=== PATIENT | female | born 1980 | race Caucasian/White ===

== ENCOUNTER 2018-05-21 18:36 | Emergency (ER) | payer OTHER ==
--- NOTE | 2018-05-21 18:48 | EDPHY ---
H & P Time Seen by Provider: 05/21/18 18:38 HPI/ROS: CHIEF COMPLAINT: Epigastric and chest pain HISTORY OF PRESENT ILLNESS: She has been having intermittent symptoms over the past month but usually only last a minute or 2. Presents tonight with symptoms starting at 6:00 p.m. While she was sweeping. Epigastric and radiates up into her throat associated with nausea and diaphoresis and left arm pain and numbness and tingling. She says her central symptoms feel like bad heartburn. Arrives by EMS feeling a little bit better. Denies cough or vomiting or palpitations or syncope. No diarrhea. No injury or trauma. REVIEW OF SYSTEMS: Eye: no change in vision ENT: no sore throat Cardiac: HPI Pulmonary: no cough or SOB Abdomen: HPI Musculoskeletal: no back pain Skin: no rash Neuro: no headache Constitutional: no fever : no urinary symptoms A comprehensive 10 point review of systems is otherwise negative aside from elements mentioned in the history of present illness. PAST MEDICAL HISTORY: Hypertension and thyroid Family history: Positive for premature coronary disease in her father in his 40s, and gallbladder disease in her mother. Negative for DVT or PE. Social history: Tobacco smoker General Appearance: Alert and conversant, cooperative. Eyes: No scleral icterus. ENT, Mouth: Normal mucous membranes. Respiratory: Normal respiratory effort, breath sounds equal, lungs are clear to auscultation. Cardiovascular: Regular rate and rhythm. Gastrointestinal: Epigastric and right upper quadrant tenderness. Neurological: Alert, face symmetric, normal motor and sensory in extremities. Skin: Warm and dry, no rashes. Musculoskeletal: No peripheral edema. No calf tenderness. Psychiatric: Not agitated. Emergency Department course/MDM: Initial EKG does not show ischemic changes. Also suspicious for pancreatic or gallbladder disease given location of symptoms and tenderness. Troponin, lipase and LFTs, chest x-ray and gallbladder ultrasound. Patient has a HEART score of 2. 1 for history, 0 for age, 0 for EKG, 0 for troponin, 1 for risk factors. The shared decision-making instrument was personally reviewed with the patient by myself, including the risk of MACE. Patient and state understanding and agreement with the chosen disposition. 2030: Results discussed and discharge plan reviewed. More likely to be gastrointestinal than cardiac. Plan for proton pump inhibitor , primary care follow-up, gastroenterology referral. Constitutional: Initial Vital Signs Temperature (C) 36.6 C 02/14/19 18:43 Heart Rate 83 05/21/18 18:43 Respiratory Rate 24 H 05/21/18 18:43 Blood Pressure 164/86 H 05/21/18 18:43 O2 Sat (%) 97 05/21/18 18:43 O2 Delivery Mode Room Air Allergies/Adverse Reactions: amoxicillin Allergy (Verified 05/21/18 18:41) aspirin Allergy (Verified 05/21/18 18:41) cephalexin [From Keflex] Allergy (Verified 05/21/18 18:41) Penicillins Allergy (Verified 05/21/18 18:41) Home Medications: Medication Instructions Recorded Hydrochlorothiazide 05/21/18 Levothyroxine 05/21/18 Pantoprazole Sodium [Protonix] 40 mg PO DAILY #15 tab 05/21/18 Medical Decision Making - Diagnostics EKG Interpretation: 12-lead EKG interpreted by me; official reading is in computer system. My interpretation is sinus rhythm rate 89 with no ischemic changes. Imaging Results: Imaging Impressions Abdomen Ultrasound 05/21/18 18:46 Impression: 1. No ultrasound evidence of acute cholecystitis. 2. Fatty liver. 3. Mild pelvocaliectasis of the lower pole right kidney. Findings and recommendations discussed with VELVET SURESH at 1959 hour, 2018. Chest X-Ray 05/21/18 18:46 Impression: No acute cardiopulmonary process. Imaging: I viewed and interpreted images myself Differential Diagnosis: Differential diagnosis considered for chest pain including but not limited to cholecystitis or pancreatitis, myocardial ischemia, aortic dissection, pericarditis, pulmonary embolus, chest wall pain, pleural inflammation and pulmonary infectious causes. - Data Points Laboratory Results: Laboratory Results 05/21/18 18:47 05/21/18 18:47 05/21/18 05/21/18 05/21/18 18:47 18:47 18:47 WBC RBC Hgb Hct MCV MCH MCHC RDW Plt Count MPV Neut % (Auto) Lymph % (Auto) Eddy % (Auto) Eos % (Auto) Baso % (Auto) Nucleat RBC Rel Count Absolute Neuts (auto) Absolute Lymphs (auto) Absolute Monos (auto) Absolute Eos (auto) Absolute Basos (auto) Absolute Nucleated RBC Immature Gran % Immature Gran # Sodium 136 mEq/L mEq/L (135-145) Potassium 3.8 mEq/L mEq/L (3.5-5.2) Chloride 106 mEq/L mEq/L (97-110) Carbon Dioxide 23 mEq/l mEq/l (22-31) Anion Gap 7 mEq/L mEq/L (6-14) BUN 8 mg/dL mg/dL (7-23) Creatinine 0.8 mg/dL mg/dL (0.6-1.0) Estimated GFR > 60 Glucose 95 mg/dL mg/dL (70-100) Calcium 9.5 mg/dL mg/dL (8.5-10.4) Total Bilirubin 0.6 mg/dL mg/dL (0.1-1.4) Conjugated Bilirubin 0.5 mg/dL mg/dL (0.0-0.5) Unconjugated Bilirubin 0.1 mg/dL mg/dL (0.0-1.1) AST 28 IU/L IU/L (14-46) ALT 37 IU/L IU/L (9-52) Alkaline Phosphatase 79 IU/L IU/L (38-126) POC Troponin I 0.01 ng/mL ng/mL (0.00-0.08) Total Protein 7.5 g/dL g/dL (6.3-8.2) Albumin 4.5 g/dL g/dL (3.5-5.0) Lipase 72 IU/L IU/L (23-300) Beta HCG, Qual NEGATIVE 05/21/18 18:47 WBC 10.92 10^3/uL H 10^3/uL (3.80-9.50) RBC 5.38 10^6/uL H 10^6/uL (4.18-5.33) Hgb 15.6 g/dL g/dL (12.6-16.3) Hct 46.1 % % (38.0-47.0) MCV 85.7 fL fL (81.5-99.8) MCH 29.0 pg pg (27.9-34.1) MCHC 33.8 g/dL g/dL (32.4-36.7) RDW 13.1 % % (11.5-15.2) Plt Count 335 10^3/uL 10^3/uL (150-400) MPV 9.5 fL fL (8.7-11.7) Neut % (Auto) 62.7 % % (39.3-74.2) Lymph % (Auto) 28.4 % % (15.0-45.0) Eddy % (Auto) 7.1 % % (4.5-13.0) Eos % (Auto) 1.1 % % (0.6-7.6) Baso % (Auto) 0.3 % % (0.3-1.7) Nucleat RBC Rel Count 0.0 % % (0.0-0.2) Absolute Neuts (auto) 6.86 10^3/uL H 10^3/uL (1.70-6.50) Absolute Lymphs (auto) 3.10 10^3/uL H 10^3/uL (1.00-3.00) Absolute Monos (auto) 0.77 10^3/uL 10^3/uL (0.30-0.80) Absolute Eos (auto) 0.12 10^3/uL 10^3/uL (0.03-0.40) Absolute Basos (auto) 0.03 10^3/uL 10^3/uL (0.02-0.10) Absolute Nucleated RBC 0.00 10^3/uL 10^3/uL (0-0.01) Immature Gran % 0.4 % % (0.0-1.1) Immature Gran # 0.04 10^3/uL 10^3/uL (0.00-0.10) Sodium Potassium Chloride Carbon Dioxide Anion Gap BUN Creatinine Estimated GFR Glucose Calcium Total Bilirubin Conjugated Bilirubin Unconjugated Bilirubin AST ALT Alkaline Phosphatase POC Troponin I Total Protein Albumin Lipase Beta HCG, Qual Point of Care Test Results: Chemistry 05/21/18 18:47 POC Troponin I 0.01 ng/mL ng/mL (0.00-0.08) Departure - Departure Disposition: Home, Routine, Self-Care Clinical Impression: Chest pain Qualifiers: Chest pain type: unspecified Qualified Code(s): R07.9 - Chest pain, unspecified GERD (gastroesophageal reflux disease) Qualifiers: Esophagitis presence: esophagitis presence not specified Qualified Code(s): K21.9 - Gastro-esophageal reflux disease without esophagitis Condition: Good Instructions: Chest Pain (ED), Gastroesophageal Reflux Disease (ED) Additional Instructions: Please follow-up with Gastroenterology as referred. Reduce intake of cigarettes and caffeine. Referrals: Jacob Chairez MD [Medical Doctor] - As per Instructions Patient,NotPresent [Unknown] - As per Instructions ([facility]) Prescriptions: Pantoprazole Sodium [Protonix] 40 mg PO DAILY #15 tab
--- NOTE | 2018-05-21 18:49 | CPEKG ---
Test Reason : OPEN Blood Pressure : / mmHG Vent. Rate : 089 BPM Atrial Rate : 089 BPM P-R Int : 138 ms QRS Dur : 114 ms QT Int : 379 ms P-R-T Axes : 077 038 049 degrees QTc Int : 462 ms Sinus rhythm Confirmed by Blas Cochran ([id number]) on 05/21/2018 6:48:37 PM Referred By: Blas Cochran Confirmed By:Blas Cochran
[2018-05-21 18:51] LABS: PLATELET COUNT 335 10^3/uL (150-400)
[2018-05-21 20:47] VITALS: BP 139/78
== END 2018-05-21 20:47 | disposition home or self-care (01) ==
LOC: EDUNIT# → EDBD
DX: R07.9 Chest pain, unspecified (principal); K21.9 Gastro-esophageal reflux disease without esophagitis
CPT/HCPCS: 84484-ER